=== PATIENT | female | born 2000 | race Two or more races ===

== ENCOUNTER 2021-03-30 19:06 | Emergency (ER) | payer MEDICAID ==
[~2021-03-30] VITALS: Ht 167.6 cm; Wt 68.0 kg
[2021-03-30] MEDS ORDERED: ACETAMINOPHEN 325MG TABLET PO STA (22:37)
[2021-03-30 23:14] LABS: CLARITY URINE TURBID (CLEAR); COLOR URINE YELLOW (YELLOW); KETONES URINE NEGATIVE (NEGATIVE); LEUKOCYTE ESTERASE URINE 3+ (NEGATIVE); NITRITE URINE NEGATIVE (NEGATIVE); OCCULT BLOOD URINE 3+ (NEGATIVE); PH URINE >=9.0 (4.5-8.0); PROTEIN URINE TRACE (NEGATIVE); SPECIFIC GRAVITY URINE 1.019 (1.005-1.030); UROBILINOGEN URINE 0.2 E.U./dL (0.2-1.0)
[2021-03-30 23:20] LABS: BASOPHILS % 0.5 % (0.0-2.0); CHLORIDE 106 mEq/L (98-107); EOSINOPHILS % 4.3 % (0.0-5.0); HEMATOCRIT. 36.4 % (36.0-48.0); HEMOGLOBIN. 12.1 g/dL (12.0-16.0); LYMPHOCYTES % 19.5 % (20.0-50.0); MEAN CORPUSCULAR HEMOGLOBIN 28.8 pg (28.0-32.0); MEAN PLATELET VOLUME 7.7 fl (7.4-10.4); MONOCYTES % 5.5 % (2.0-8.0); NEUTROPHILS % 70.2 % (40.0-76.0); PLATELET 330 x1000/uL (130-400); RED BLOOD CELL COUNT 4.19 mill/uL (4.2-5.4); RED CELL DISTRIBUTION WIDTH 14.4 % (11.6-14.6)
[2021-03-30 23:44] LABS: B-HCG QUANTITATIVE 9254 mIU/mL (<3)
[2021-03-31] MEDS ORDERED: TOPUD MT (00:29)
[2021-03-31] MEDS ORDERED: NITR-87 MT (00:29)
[2021-03-31 00:35] VITALS: BP 116/66
== END 2021-03-31 00:51 | disposition home or self-care (01) ==
LOC: ER 19:06
DX: O20.0 Threatened abortion (principal); B96.89 Other specified bacterial agents as the cause of diseases classified elsewhere; Z3A.01 Less than 8 weeks gestation of pregnancy
CPT/HCPCS: 36415; 76801; 80053; 81003; 81025; 84702; 85025; 86850; 86900; 99284

== ENCOUNTER 2021-04-01 21:30 | Emergency (ER) | payer MEDICAID ==
[~2021-04-01] VITALS: Ht 167.6 cm; Wt 69.0 kg
[~2021-04-01 21:30] MED LIST: NITR-87 MT; TOPUD MT
[2021-04-01] MEDS: ACETAMINOPHEN 325MG TABLET PO PRN (23:56)
[2021-04-02 01:18] LABS: BASOPHILS % 0.9 % (0.0-2.0); EOSINOPHILS % 3.6 % (0.0-5.0); HEMATOCRIT. 34.4 % (36.0-48.0); HEMOGLOBIN. 11.5 g/dL (12.0-16.0); MEAN CORPUSCULAR HEMOGLOBIN 28.9 pg (28.0-32.0); MEAN CORPUSCULAR VOLUME 86.3 fL (81.0-99.0); MEAN PLATELET VOLUME 7.6 fl (7.4-10.4); MONOCYTES % 6.4 % (2.0-8.0); NEUTROPHILS % 69.1 % (40.0-76.0); PLATELET 359 x1000/uL (130-400); RED BLOOD CELL COUNT 3.98 mill/uL (4.2-5.4); RED CELL DISTRIBUTION WIDTH 14.4 % (11.6-14.6)
[2021-04-02 01:24] LABS: CHLORIDE 106 mEq/L (98-107)
[2021-04-02 01:50] LABS: B-HCG QUANTITATIVE 6187 mIU/mL (<3)
[2021-04-02] MEDS ORDERED: PIPERACILLIN/TAZ 3.375G PREMIX 50 ML IV ONE (02:45)
[2021-04-02] MEDS ORDERED: VANCOMYCIN 1G PREMIX 200 ML IV ONE (02:45)
[2021-04-02] MEDS ORDERED: VANCOMYCIN 1,000 MG in DEXT 5% WATER 250 ML IV SCH (03:00)
[2021-04-02 03:54] LABS: CLARITY URINE CLOUDY (CLEAR); COLOR URINE ORANGE (YELLOW); KETONES URINE NEGATIVE (NEGATIVE); LEUKOCYTE ESTERASE URINE 1+ (NEGATIVE); NITRITE URINE NEGATIVE (NEGATIVE); OCCULT BLOOD URINE 3+ (NEGATIVE); PH URINE 5.5 (4.5-8.0); PROTEIN URINE TRACE (NEGATIVE); SPECIFIC GRAVITY URINE 1.025 (1.005-1.030)
[2021-04-02] MEDS ORDERED: NITR-87 MT (04:16)
[2021-04-02 04:58] VITALS: BP 122/74
== END 2021-04-02 05:00 | disposition home or self-care (01) ==
LOC: ER 21:30
DX: O46.91 Antepartum hemorrhage, unspecified, first trimester (principal); Z3A.01 Less than 8 weeks gestation of pregnancy
CPT/HCPCS: 36415; 76830; 76856; 80053; 81003; 84702; 85025; 99284; J3370; J7060

== ENCOUNTER 2021-08-12 14:19 | Emergency (ER) | payer OTHER ==
[~2021-08-12] VITALS: Ht 167.6 cm; Wt 75.0 kg
[2021-08-12 14:36] VITALS: BP 123/72
[2021-08-12] MEDS ORDERED: CEFTRIAXONE SODIUM 500 MG/VIAL IM ONE (15:45)
[2021-08-12] MEDS ORDERED: DOXYCYCLINE HYCLATE 100MG CAPSULE PO ONE (15:45)
[2021-08-12 16:19] LABS: CLARITY URINE CLOUDY (CLEAR); COLOR URINE YELLOW (YELLOW); KETONES URINE TRACE (NEGATIVE); LEUKOCYTE ESTERASE URINE 3+ (NEGATIVE); NITRITE URINE NEGATIVE (NEGATIVE); OCCULT BLOOD URINE TRACE (NEGATIVE); PH URINE 6.5 (4.5-8.0); PROTEIN URINE 1+ (NEGATIVE); SPECIFIC GRAVITY URINE 1.025 (1.005-1.030)
[2021-08-12] MEDS ORDERED: IBUP-2029 MT (16:23)
[2021-08-12] MEDS ORDERED: DOXY-326 MT (16:23)
[2021-08-15 05:08] LABS: NEISSERIA GONORRHOEAE NAA Negative (Negative)
== END 2021-08-12 16:52 | disposition home or self-care (01) ==
LOC: ER 14:26
DX: N89.8 Other specified noninflammatory disorders of vagina (principal); N39.0 Urinary tract infection, site not specified
CPT/HCPCS: 81003; 87086; 87210; 87491; 87591; 96372; 99284; J0696